=== PATIENT | male | born 1945 | race Caucasian/White ===

== ENCOUNTER 2020-05-12 11:18 | Emergency (ER) | payer MEDICARE, OTHER ==
[2020-05-12 12:03] VITALS: BP 101/62; PULSE 74; TEMP 97.7; BMI 25.1
[2020-05-12] MEDS ORDERED: LIDOCAINE 5% TOPICAL PATCH ONE (13:13)
== END 2020-05-12 13:27 | disposition home or self-care (01) ==
LOC: FER 11:18
DX: S39.012A Strain of muscle, fascia and tendon of lower back, initial encounter (principal); M51.36 Other intervertebral disc degeneration, lumbar region
CPT/HCPCS: 72100-TC-FY; 99284-25